=== PATIENT | male | born 1975 | race Caucasian/White ===

== ENCOUNTER 2018-09-05 22:26 | Emergency (ER) | payer SELFPAY | END 2018-09-05 23:30 | disposition left against medical advice (07) | LOC: FTE 22:26 | DX: Z53.21 Procedure and treatment not carried out due to patient leaving prior to being seen by health care provider (principal) ==

== ENCOUNTER 2018-09-19 07:27 | Emergency (ER) | payer OTHER ==
[2018-09-19 08:36] LABS: ADD MAN DIFF? NO
[2018-09-19] MEDS: SOD CHLORIDE 0.9% 1,000 ML IV (08:37)
[2018-09-19 08:38] LABS: WHITE BLOOD COUNT 4.1 10^3/ul (4.8-10.8)
[2018-09-19 08:38] LABS: BASOPHIL # 0.1 10^3/ul (0.0-0.1); BASOPHILS % 1.2 % (0.0-2.0); EOSINOPHILS # 0.1 10^3/ul (0.0-0.5); EOSINOPHILS % 3.4 % (0.0-7.0); HEMATOCRIT 43.3 % (42.0-52.0); HEMOGLOBIN 14.9 g/dl (14.0-18.0); LYMPHOCYTES # 0.9 10^3/ul (0.8-2.9); LYMPHOCYTES % 20.9 % (15.0-51.0); MEAN CORPUSCULAR HEMOGLOBIN 32.3 pg (29.0-33.0); MEAN CORPUSCULAR HGB CONC 34.4 g/dl (32.0-37.0); MEAN CORPUSCULAR VOLUME 93.9 fl (82.0-101.0); MEAN PLATELET VOLUME 9.2 fl (7.4-10.4); MONOCYTE # 0.5 10^3/ul (0.3-0.9); MONOCYTES % 11.3 % (0.0-11.0); NEUTROPHIL # 2.6 10^3/ul (1.6-7.5); NEUTROPHILS % 62.7 % (39.0-77.0); PLATELET COUNT 211 10^3/UL (140-415); RED BLOOD COUNT 4.61 10^6/ul (4.70-6.10); RED CELL DISTRIBUTION WIDTH 12.3 % (11.5-14.5)
[2018-09-19] MEDS: BELLADONNA/PHENOBARBITAL TAB PO (08:38)
[2018-09-19] MEDS: ONDANSETRON 4 MG INJ IV (08:38)
[2018-09-19] MEDS: LIDOCAINE/MYLANTA 40 ML BTL PO (08:38)
[2018-09-19] MEDS: FAMOTIDINE 20 MG INJ IV (08:38)
[2018-09-19 08:55] LABS: ALANINE AMINOTRANSFERASE 57 IU/L (13-69); ALBUMIN 4.3 g/dl (3.3-4.9); ALKALINE PHOSPHATASE 129 IU/L (42-121); ANION GAP 14 (5-13); ASPARTATE AMINO TRANSFERASE 82 IU/L (15-46); BILIRUBIN,INDIRECT 0.3 mg/dl (0-1.1); BILIRUBIN,TOTAL 0.3 mg/dl (0.2-1.3); BLOOD UREA NITROGEN 9 mg/dl (7-20); CALCIUM 9.4 mg/dl (8.4-10.2); CARBON DIOXIDE 22 mmol/L (21-31); CHLORIDE 107 mmol/L (97-110); CREATININE 1.12 mg/dl (0.61-1.24); Estimated GFR > 60 mL/min (>60); GLUCOSE 107 mg/dl (70-220); LIPASE 155 U/L (23-300); POTASSIUM 4.1 mmol/L (3.5-5.1); SODIUM 143 mmol/L (135-144); TOTAL PROTEIN 7.6 g/dl (6.1-8.1)
[2018-09-19 09:03] LABS: INR 0.95; PROTIME 12.8 Sec (11.9-14.9)
[2018-09-19] MEDS: FENTAnyl 50 MCG/ML VIAL IV (09:06)
[2018-09-19 09:10] LABS: ADD UMIC YES; UR ASCORBIC ACID NEGATIVE (NEGATIVE); UR BILIRUBIN (Dip) NEGATIVE (NEGATIVE); UR BLOOD (Dip) NEGATIVE (NEGATIVE); UR CLARITY SLIGHTLY CLOUDY (CLEAR); UR COLOR YELLOW (YELLOW); UR GLUCOSE (Dip) NEGATIVE (NEGATIVE); UR KETONES (Dip) TRACE mg/dL (NEGATIVE); UR LEUKOCYTE ESTERASE (Dip) NEGATIVE Leu/ul (NEGATIVE); UR MUCUS MANY /HPF (NONE SEEN); UR NITRITE (Dip) NEGATIVE (NEGATIVE); UR RBC 3 /HPF (0-5); UR SPECIFIC GRAVITY (Dip) 1.024 (1.003-1.030); UR SQUAMOUS EPITHELIAL CELL FEW /HPF (FEW); UR TOTAL PROTEIN (Dip) 1+ mg/dl (NEGATIVE); UR UROBILINOGEN (Dip) NEGATIVE (NEGATIVE); UR WBC 1 /HPF (0-5)
== END 2018-09-19 11:41 | disposition home or self-care (01) ==
LOC: E/R 07:27
DX: R10.33 Periumbilical pain (principal); R11.2 Nausea with vomiting, unspecified; F10.10 Alcohol abuse, uncomplicated; R74.0 Nonspecific elevation of levels of transaminase and lactic acid dehydrogenase [LDH]; Z98.890 Other specified postprocedural states
CPT/HCPCS: 36415; 71045; 80053; 81001; 83690; 85025; 85610; 93005; 96374; 96375; 99285-25

== ENCOUNTER 2018-10-30 17:14 | Emergency (ER) | payer OTHER ==
[2018-10-30] MEDS: ONDANSETRON 4 MG INJ IV (22:19)
[2018-10-30] MEDS: LORAZEPAM 2 MG INJ IV (22:20)
[2018-10-30 22:32] LABS: URINE BLOOD (Dip) POC Negative (NEGATIVE); URINE GLUCOSE (Dip) POC Negative (NEGATIVE); URINE KETONES (Dip) POC 4+ (NEGATIVE); URINE LEUKOCYTE EST (Dip) POC Negative (NEGATIVE); URINE NITRITE (Dip) POC Negative (NEGATIVE); URINE TOTAL PROTEIN POC 2+ (NEGATIVE)
[2018-10-30 22:32] LABS: URINE PH (Dip) POC 7.5 (5.0-8.5)
[2018-10-30 22:40] LABS: ADD MAN DIFF? NO
[2018-10-30] MEDS: SOD CHLORIDE 0.9% 1,000 ML IV ×2 (22:49→23:02)
[2018-10-30 22:51] LABS: WHITE BLOOD COUNT 7.2 10^3/ul (4.8-10.8)
[2018-10-30 22:51] LABS: BASOPHIL # 0.1 10^3/ul (0.0-0.1); EOSINOPHILS % 0.1 % (0.0-7.0); HEMATOCRIT 41.5 % (42.0-52.0); HEMOGLOBIN 13.9 g/dl (14.0-18.0); LYMPHOCYTES # 1.3 10^3/ul (0.8-2.9); LYMPHOCYTES % 17.5 % (15.0-51.0); MEAN CORPUSCULAR HEMOGLOBIN 32.1 pg (29.0-33.0); MEAN CORPUSCULAR HGB CONC 33.5 g/dl (32.0-37.0); MEAN CORPUSCULAR VOLUME 95.8 fl (82.0-101.0); MEAN PLATELET VOLUME 9.4 fl (7.4-10.4); MONOCYTE # 0.7 10^3/ul (0.3-0.9); MONOCYTES % 9.9 % (0.0-11.0); NEUTROPHIL # 5.1 10^3/ul (1.6-7.5); NEUTROPHILS % 71.2 % (39.0-77.0); PLATELET COUNT 191 10^3/UL (140-415); RED BLOOD COUNT 4.33 10^6/ul (4.70-6.10); RED CELL DISTRIBUTION WIDTH 12.8 % (11.5-14.5)
[2018-10-30 23:06] LABS: AMPHETAMINE/METHAMPHETAMINE Negative (NEGATIVE); BARBITURATES Negative (NEGATIVE); CANNABINOIDS Positive (NEGATIVE); COCAINE Negative (NEGATIVE); OPIATES Negative (NEGATIVE)
[2018-10-30 23:07] LABS: BENZODIAZEPINES Positive (NEGATIVE)
[2018-10-30 23:10] LABS: ALANINE AMINOTRANSFERASE 107 IU/L (13-69); ALBUMIN 4.5 g/dl (3.3-4.9); ALBUMIN/GLOBULIN RATIO 1.36; ALKALINE PHOSPHATASE 123 IU/L (42-121); ANION GAP 16 (5-13); ASPARTATE AMINO TRANSFERASE 201 IU/L (15-46); BILIRUBIN,INDIRECT 1.8 mg/dl (0-1.1); BILIRUBIN,TOTAL 1.8 mg/dl (0.2-1.3); BLOOD UREA NITROGEN 8 mg/dl (7-20); CALCIUM 9.5 mg/dl (8.4-10.2); CARBON DIOXIDE 22 mmol/L (21-31); CHLORIDE 103 mmol/L (97-110); CREATININE 1.11 mg/dl (0.61-1.24); Estimated GFR > 60 mL/min (>60); GLUCOSE 100 mg/dl (70-220); LIPASE 171 U/L (23-300); POTASSIUM 3.7 mmol/L (3.5-5.1); SODIUM 141 mmol/L (135-144); TOTAL PROTEIN 7.8 g/dl (6.1-8.1)
[2018-10-30 23:12] LABS: ETHANOL < 10.0 mg/dl (0-0)
== END 2018-10-31 00:16 | disposition home or self-care (01) ==
LOC: E/R 10-31 00:16
DX: F10.239 Alcohol dependence with withdrawal, unspecified (principal); R40.2142 Coma scale, eyes open, spontaneous, at arrival to emergency department; R40.2252 Coma scale, best verbal response, oriented, at arrival to emergency department; R40.2362 Coma scale, best motor response, obeys commands, at arrival to emergency department
CPT/HCPCS: 80053; 80307; 81003; 83690; 85025; 96374; 96375; 99284-25

== ENCOUNTER 2018-12-06 14:00 | Emergency (ER) | payer OTHER ==
[2018-12-06] MEDS ORDERED: ONDANSETRON 4 MG INJ (17:10)
[2018-12-06] MEDS: SOD CHLORIDE 0.9% 1,000 ML IV (17:12)
[2018-12-06] MEDS: LORAZEPAM 2 MG INJ IV (18:59)
[2018-12-06] MEDS: CHLORDIAZEPOXIDE 25 MG CAP PO (18:59)
[2018-12-10] MEDS ORDERED: ONDANSETRON 4 MG INJ IV (09:28)
== END 2018-12-06 20:30 | disposition home or self-care (01) ==
LOC: E/R 14:00
DX: F10.239 Alcohol dependence with withdrawal, unspecified (principal)
CPT/HCPCS: 96374; 99284-25